=== PATIENT | male | born 1990 | race Caucasian/White ===

== ENCOUNTER 2020-04-13 19:36 | Emergency (ER) | payer SELFPAY | END 2020-04-13 22:12 | disposition left against medical advice (07) | LOC: ER 19:36 | DX: Z53.29 Procedure and treatment not carried out because of patient's decision for other reasons (principal) ==

== ENCOUNTER 2020-04-14 10:15 | Emergency (ER) | payer SELFPAY ==
--- NOTE | 2020-04-14 10:55 | ED.PDOC ---
History of Present Illness - General Chief Complaint: Respiratory Problem Stated Complaint: difficulty breathing Time Seen by Provider: 04/14/20 10:35 Source: patient Exam Limitations: no limitations - History of Present Illness Comments: 29 yo otherwise healthy M who presents with a two day hx of sore throat, congestion, watery and itchy eyes, runny nose, cough, subjective fever, SOB that he feels mainly from congestion. No known COVID exposure, no recent travel. Denies chills, CP, abd pain, n/v/d, edema, urinary sx. Allergies/Adverse Reactions: Allergies NO KNOWN ALLERGY Allergy (Verified 04/14/20 10:37) Home Medications: Ambulatory Orders NK 04/14/20 Review of Systems - Review of Systems Constitutional: States: fever - subjective. Denies: chills EENTM: States: other - +watery/itchy eyes, congestion, runny nose, sore throat. Denies: blurred vision, double vision Respiratory: States: cough, short of breath. Denies: orthopnea, stridor, wheezing Cardiology: Denies: chest pain, edema, palpitations, syncope Gastrointestinal/Abdominal: Denies: abdominal pain, constipation, diarrhea, nausea, vomiting Genitourinary: Denies: dysuria, frequency, hematuria Musculoskeletal: Denies: back pain, neck pain Skin: Denies: lesions, rash Neurological: Denies: headache, numbness, weakness Past Medical History (General) - Patient Medical History Hx Stroke: No Hx Asthma: No Hx Cardiac Disorders: No Hx Congestive Heart Failure: No Hx Hypertension: No - Vaccination History Hx Tetanus, Diphtheria Vaccination: No Hx Influenza Vaccination: No - Social History Hx Alcohol Use: No - Activities of Daily Living Hospice Agency (if applicable):: None - Female History Patient is a Female of Child Bearing Age (10 -59 yrs old): No Family Medical History - Family History Mother Family History: Unknown Physical Exam - Physical Exam General Appearance: Alert, Comfortable, No apparent distress, Well Developed, Well Nourished Eye Exam: bilateral other - injected ENT Exam: nasal congestion, other - no tonsillar swelling or exudate, mildly erythematous Neck: non-tender, full range of motion, supple, normal inspection Respiratory: chest non-tender, lungs clear, normal breath sounds, no respiratory distress, no accessory muscle use Cardiovascular/Chest: normal peripheral pulses, regular rate, rhythm, no edema, no gallop, no JVD, no murmur Gastrointestinal/Abdominal: non tender, soft, no organomegaly, no pulsatile mass Extremity: normal range of motion, non-tender, normal inspection, no pedal edema Neurologic: no motor/sensory deficits, alert, normal mood/affect Skin Exam: normal color, warm/dry Lymphatic: no adenopathy Progress - Progress Progress: 04/14/20 13:58 I have explained and reviewed all results with the pt. Discussed need for 2 weeks of isolation, recommended OTC allergy medication as well as mucinex. I explained that emergent conditions may arise and to return to the ER for new, worsening, or any persistent conditions. I've explained the importance of f/u for recheck. All questions and concerns addressed at this time. Pt understands and agrees with plan. Pt well appearing, NAD, is stable for discharge. Richa Espana MD Emergency Medicine Physician Billing Number [id number] - Results/Orders Results/Orders: 04/14/20 10:05 SARS-COV2 RT-PCR HIGH RISK Stat 04/14/20 12:40 EKG .ONCE CXR: EXAM DESCRIPTION: Chest,1 View CLINICAL HISTORY: 29 years Male, CP, SOB COMPARISON: None. TECHNIQUE: Single view of the chest. IMPRESSION: Normal size cardiac silhouette. No lobar consolidation or masslike opacity. No pleural effusion or pneumothorax. Included osseous structures intact. Electronically signed by: Timbo Dias MD 04/14/2020 11:18 AM CDT - EKG/XRAY/CT EKG: Sinus, no ST T wave changes Comments: Rate of 75, sinus arrythmia Departure - Departure Clinical Impression: Suspected COVID-19 virus infection Time of Disposition: 11:31 Disposition: Discharge to Home or Self Care Health Concerns: condition: stable Departure Forms: ED Discharge - Pt. Copy, Patient Portal Self Enrollment Instructions: Coronavirus Disease 2019 (COVID-19) Home Medications: Ambulatory Orders NK 04/14/20 Additional Instructions: Follow up: [facility] As needed, if symptoms worsen Your Primary Care Physician Make appointment, two days, for follow up
--- NOTE | 2020-04-14 11:19 | RAD ---
EXAM DESCRIPTION: Chest,1 View CLINICAL HISTORY: 29 years Male, CP, SOB COMPARISON: None. TECHNIQUE: Single view of the chest. IMPRESSION: Normal size cardiac silhouette. No lobar consolidation or masslike opacity. No pleural effusion or pneumothorax. Included osseous structures intact. Electronically signed by: Timbo Dias MD 04/14/2020 11:18 AM CDT
[2020-04-14 12:08] VITALS: BP 140/95; TEMP 98; O2SAT 96
== END 2020-04-14 12:09 | disposition home or self-care (01) ==
LOC: ER 10:15
DX: J02.9 Acute pharyngitis, unspecified (principal); R50.9 Fever, unspecified; R06.02 Shortness of breath; R05 Cough; Z11.59 Encounter for screening for other viral diseases